=== PATIENT | male | born 1935 | race Caucasian/White ===

== ENCOUNTER 2024-06-15 09:57 | Outpatient (RCR) | payer MEDICARE, MEDICAID, SELFPAY ==
[2024-06-15 10:27] VITALS: BP 117/72; RESP 16; TEMP 35.8; BMI 19.5
--- NOTE | 2024-06-15 12:47 | PCM.WC.HP ---
History of Present Illness Date of Service: 06/15/24 Chief Complaint: Left foot wound History of Wound: History of left foot wound secondary to peripheral vascular disease Progress of Wound: Mr. Bo is a 88-year-old nondiabetic male presenting to wound care center today for evaluation of left foot wound. Patient was seen by an outside audit clerks supervisor who referred the patient to the wound care center for continued care. Patient has been treating his wound to the left foot with Betadine and offloading pads. The patient does have history of peripheral vascular disease with no intervention at this time. Patient is currently blind and uses a walking cane and motorized scooter for transportation. The patient is able to do exercises to the upper and lower extremities. The patient states the wound has broken down in shoe gear secondary to his inability to feel be from his peripheral vascular disease and shoe gear. Treatment thus far has been with an outside audit clerks supervisor and home treatment. He denies any trauma to the left foot. Denies constitutional symptoms. No other pedal complaints at this time. [facility] Home Medications ?Medication ?Instructions ?Recorded ?Last Taken ?Type aspirin 81 mg tablet,delayed 81 mg PO DAILY 06/15/24 Unknown History release (Adult Aspirin Regimen) lovastatin 40 mg tablet 40 mg PO DAILY 06/15/24 Unknown History metoprolol tartrate 50 mg tablet 50 mg PO DAILY 06/15/24 Unknown History (Lopressor) vitamins A,C,E-arju-bgshcs 4,296 1 cap PO DAILY 06/15/24 Unknown History [id number] mg-90 mg capsule (PreserVision AREDS) Allergy/AdvReac Type Severity Reaction Status Date / Time doxycycline Allergy Mild Rash Verified 06/15/24 10:24 Penicillins Allergy Unknown PT UNSURE Verified 06/15/24 10:24 OF REACTION Vital Signs Vital Signs Vital Signs: 06/15/24 10:27 Temperature 96.5 F L Temperature Source Temporal Respiratory Rate 16 Blood Pressure 117/72 Blood Pressure Mean 87 Blood Pressure Source Monitor Blood Pressure Position Sitting Blood Pressure Location Left Arm Oxygen Delivery Method Room Air Weight Weight: 59.874 kg Body Mass Index (BMI) 19.5 Physical Exam Narrative Vascular: None audible Doppler pulses to the DP of the left lower extremity. Monophasic dopplerable pulse to the PT of the left lower extremity. CFT is delayed. Skin temperature gradient is warm to cool from proximal leg to distal digits. No focal increases appreciated. Evidence of mild cyanosis appreciated to all digits to left lower extremity. Neurological:. Light touch intact. Patient response to painful stimuli. Dermatological: Full-thickness wound to the styloid process of the left foot measuring 0.1 x 0.1 x 0.1 cm. Excisional debridement down to and including dermal tissue with a number 3 mm dermal curette to the left foot full-thickness wound without incident. Predebridement measurement is callus. Postdebridement measurement is 0.1 x 0.1 x 0.1 cm. Musculoskeletal: No pain on palpation to the full-thickness wound to the left foot. No pain with calf pressure. Debridement Note Debridement Note Debridement Free Text: Excisional debridement down to and including dermal tissue with a number 3 mm dermal curette to the left foot full-thickness wound without incident. Predebridement measurement is callus. Postdebridement measurement is 0.1 x 0.1 x 0.1 cm. Post-Debridement Measurements and Additional Note: Post-Debridement Measurements/Treatment WC - Nurse 1 - General Ulcer Assessment Start: 06/15/24 10:27 Freq: Status: Active Protocol: DIANNE.LOWPHYLICIAT Activity Type Activity Date Activity User E-sign Co-sign Detail Recorded Client Recorded Date Recorded By Document 06/15/24 10:27 [id number] 06/15/24 10:34 06/15/24 10:27 - Today's Visit Information Type of service Initial Visit Arrival Mode Other Arrival Mode (Other) scooter Accompanied by daughter- Jazmyn Patient Identification Verified (Name & Yes ) Height and Weight Height 5 ft 9 in Weight 59.874 kg Weight in Pounds 132.0 lbs Weight Measurement Method Estimated by Patient Body Mass Index (BMI) 19.5 BMI Classification Normal BSA - Tosha 1.73 Vital Signs Temperature (97.8 F-99.1 F) 96.5 F L Temperature Source Temporal Respiratory Rate (12-18) 16 Respiratory rate source Observation Oxygen Delivery Method Room Air Blood Pressure (90/60-120/80) 117/72 Blood Pressure Mean 87 Source Monitor Position Sitting Blood Pressure Location Left Arm History Since Last Visit- (Skip if this is Patient's initial visit) Left Footwear Regular Shoe Right Footwear Regular Shoe Pain Scale: 0-10 Numeric Is Patient Pain Free? Yes WC - Nurse 1 - General Ulcer Measurement Start: 06/15/24 10:27 Freq: Status: Active Protocol: Activity Type Activity Date Activity User E-sign Co-sign Detail Recorded Client Recorded Date Recorded By Document 06/15/24 10:27 KW [id number] 06/15/24 10:34 KW 06/15/24 10:27 Wound Center Nurse 1 #1 LT LAT FOOT -Current Size (cm) - Length 0.1 -Current Size (cm) - Width 0.1 -Current Size (cm) - Depth 0.1 -Total Square Cm 0.01 -Date of Last Picture (Recall this 06/15/24 field) -Exudate Amt Small -Exudate Type Serosanguineous -Wound Margin Distinct, Outline Attached -Granulation Amt Large (67-100%) -Granulation Quality [place] -Necrosis Amt Small (1-33%) -Necrotic Tissue Type Adherent Slough -Texture (Kelsey-wound Skin Appearance) Assessed, Localized Edema -Moisture (Kelsey-wound Skin Appearance) Maceration -Color (Kelsey-wound Skin Appearance) Assessed -Temperature (Kelsey-wound Skin No Abnormality Appearance) (Pt Warm) -Tenderness on Palpation (Kelsey-wound No Skin Appearance) -Ulcer Cleansing Rinsed/ Irrigated with Saline -Foul Odor after Cleansing No -Anesthetic Used 5% Lidocaine Gel Left Calf (cm) 27 Left Ankle (cm) 17.5 WC - Nurse 2 - General Ulcer CM Notes Start: 06/15/24 10:27 Freq: Status: Active Protocol: Activity Type Activity Date Activity User E-sign Co-sign Detail Recorded Client Recorded Date Recorded By Document 06/15/24 10:43 [id number] 06/15/24 10:50 JF 06/15/24 10:43 Wound Center Nurse 2 #1 LT LAT FOOT -Time 10:49 -Correct Patient Yes -Correct Side, Site, Position Yes -Correct Procedure Yes -Procedure Performed Yes -Type of Procedure Debridement -Clinical Debridement Epidermis / Dermis -Tissue Removed Epidermis, Dermis -Post Debridement (cm) - Length 0.1 -Post Debridement (cm) - Width 0.1 -Post Debridement (cm) - Depth 0.1 -Total Square (Post) (cm) 0.01 -Area of Debridement (cm) - Length 0.1 -Area of Debridement (cm) - Width 0.1 -Total Square (Area) (cm) 0.01 -Tunneling No -Undermining/Tunneling No -Circular Undermining No -Wound/Ulcer Outcome Not Healed -Ulcer Cleansing Rinsed/ Irrigated with Saline -Foul Odor after Cleansing No -Bioengineered Tissue No -Bleeding Controlled with Pressure -Treatment Response Procedure Tolerated Well -Offloading No -Debridement - Open, 1st 20sq cm Yes Pain Scale: 0-10 Numeric Is Patient Pain Free? Yes Assessment/Plan Assessment/Plan (1) Non-pressure chronic ulcer of other part of left foot limited to breakdown of skin: CODE(S): L97.521 - Non-pressure chronic ulcer of other part of left foot limited to breakdown of skin PLAN: Patient was examined and evaluated. All findings were discussed with the patient. All questions were answered to the patient's satisfaction. Excisional debridement down to and including dermal tissue with a number 3 mm dermal curette to the left foot full-thickness wound without incident. Predebridement measurement is callus. Postdebridement measurement is 0.1 x 0.1 x 0.1 cm. Left lower extremities were cleaned patted dry. Betadine paint offloading pad was applied to the styloid process left foot. Patient can continue to ambulate as tolerated in regular shoe gear. We are requesting all medical records from [facility] since the patient has had noninvasive vascular studies done a few months ago. Once receiving the patient's documentation will make referral to vascular surgery for consultation and possible intervention if they feel it is needed. Patient will do dressing changes daily as above. Follow-up at the wound care center with Dr. Soria in 2 week. (2) Other specified peripheral vascular diseases: CODE(S): I73.89 - Other specified peripheral vascular diseases
--- NOTE | 2024-06-16 08:59 | WC ---
PHOTO 06/15/24 LEFT LATERAL FOOT
== END 2024-06-18 23:59 | disposition home or self-care (01) ==
LOC: WC 09:57
PROVIDERS: PCP Family Medicine; Referring Provider Family Medicine; Visit Provider Podiatrist Foot & Ankle Surgery
DX: I70.245 Atherosclerosis of native arteries of left leg with ulceration of other part of foot (principal); L97.521 Non-pressure chronic ulcer of other part of left foot limited to breakdown of skin; H54.7 Unspecified visual loss; Z79.82 Long term (current) use of aspirin; Z79.899 Other long term (current) drug therapy
CPT/HCPCS: 97597; 99204; G0463

== ENCOUNTER 2024-07-13 13:00 | Outpatient (RCR) | payer MEDICARE, MEDICAID, SELFPAY ==
[2024-06-19 00:56] VITALS: BP 117/72; RESP 16; TEMP 35.8; BMI 19.5
[2024-06-29 13:19] VITALS: BP 162/81; PULSE 61; RESP 16; TEMP 35.9; BMI 19.5
--- NOTE | 2024-06-29 16:07 | PN.PCM_ITS ---
History of Present Illness Date of Service: 06/29/24 Chief Complaint: Left foot wound History of Wound: History of left foot wound secondary to peripheral vascular disease Subjective Subjective Mr. Bo is a 88-year-old male presenting the wound care center today for follow-up evaluation of full-thickness wound to the lateral aspect of the left foot. Wound is healed. No sign of infection. No drainage. Denies trauma. Denies constitutional symptoms. No other pedal complaints at this time. Objective Data Objective Data Vital Signs: Vital Signs Temp Pulse Resp BP O2 Del Method 96.7 F L 61 16 162/81 H Room Air 06/29/24 13:19 06/29/24 13:19 06/29/24 13:19 06/29/24 13:19 06/29/24 13:19 Oxygen Delivery Method Room Air Weight: 59.874 kg Body Mass Index (BMI) 19.5 Physical Exam Narrative Vascular: None audible Doppler pulses to the DP of the left lower extremity. Monophasic dopplerable pulse to the PT of the left lower extremity. CFT is delayed. Skin temperature gradient is warm to cool from proximal leg to distal digits. No focal increases appreciated. Evidence of mild cyanosis appreciated to all digits to left lower extremity. Neurological:. Light touch intact. Patient response to painful stimuli. Dermatological: Full-thickness wound to the styloid process of the left foot Is healed. Musculoskeletal: No pain on palpation to the full-thickness wound to the left foot. No pain with calf pressure. Debridement Note Debridement Note Post-Debridement Measurements and Additional Note: Post-Debridement Measurements/Treatment - Nurse 1 - General Ulcer Assessment Start: 06/29/24 13:19 Freq: Status: Active Protocol: DIANNE.SHANEEXErvin Activity Type Activity Date Activity User E-sign Co-sign Detail Recorded Client Recorded Date Recorded By Document 06/29/24 13:19 [facility] [id number] 06/29/24 13:25 [facility] 06/29/24 13:19 - Today's Visit Information Type of service Follow-up Visit (Physician/LEGAL RECORDS CLERK ) Arrival Mode Wheelchair Transfer Assistance Other Transfer Assist (Other) 1 Accompanied by daughter Patient Identification Verified (Name & Yes ) Patient Requires Transmission-Based No Precautions Height and Weight Body Mass Index (BMI) 19.5 BMI Classification Normal Vital Signs Temperature (97.8 F-99.1 F) 96.7 F L Temperature Source Temporal Pulse Rate (60-100) 61 Pulse Location Monitor Respiratory Rate (12-18) 16 Respiratory rate source Observation Oxygen Delivery Method Room Air Blood Pressure (90/60-120/80) 162/81 H Blood Pressure Mean (mm Hg) 108 Source Monitor Position Sitting Blood Pressure Location Right Arm History Since Last Visit- (Skip if this is Patient's initial visit) Have you changed medications since your No last visit? Any new allergies or adverse reactions No Had a fall/change in ADL's that may No increase risk of falls Signs or symptoms of abuse and/or No neglect since last visit Have you been in the hospital since your No last visit? Experienced any changes in pain level or No management Left Footwear Regular Shoe Right Footwear Regular Shoe Pain Scale: 0-10 Numeric Is Patient Pain Free? Yes WC - Nurse 1 - General Ulcer Measurement Start: 06/29/24 13:19 Freq: Status: Active Protocol: Activity Type Activity Date Activity User E-sign Co-sign Detail Recorded Client Recorded Date Recorded By Document 06/29/24 13:19 [facility] [id number] 06/29/24 13:25 [facility] 06/29/24 13:19 Wound Center Nurse 1 #1 LT LAT FOOT -Combined with other wound No -Current Size (cm) - Length 0.1 -Current Size (cm) - Width 0.1 -Current Size (cm) - Depth 0.1 -Total Square Cm 0.01 -Date of Last Picture (Recall this 06/29/24 field) -Photo Taken Yes -Epithelialization Large 67-100% -Tunneling No -Undermining/Tunneling No -Circular Undermining No -Exudate Amt None Present -Texture (Kelsey-wound Skin Appearance) Assessed,Callus ,Scarring -Moisture (Kelsey-wound Skin Appearance) Assessed,Dry/ Scaly -Color (Kelsey-wound Skin Appearance) Assessed -Temperature (Kelsey-wound Skin No Abnormality Appearance) (Pt Warm) -Tenderness on Palpation (Kelsey-wound No Skin Appearance) -Ulcer Cleansing Rinsed/ Irrigated with Saline -Foul Odor after Cleansing No -Anesthetic Used 5% Lidocaine Gel WC - Nurse 2 - General Ulcer CM Notes Start: 06/29/24 13:19 Freq: Status: Active Protocol: Activity Type Activity Date Activity User E-sign Co-sign Detail Recorded Client Recorded Date Recorded By Document 06/29/24 13:36 [id number] 06/29/24 13:36 JF 06/29/24 13:36 Wound Center Nurse 2 -Correct Patient No -Correct Side, Site, Position No -Correct Procedure No -Procedure Performed No -Wound/Ulcer Outcome Not Healed -Debridement - Subq, 1st 20sq cm No Pain Scale: 0-10 Numeric Is Patient Pain Free? Yes - Nurse 3 - General Ulcer D/C NN Start: 06/29/24 13:19 Freq: Status: Active Protocol: Activity Type Activity Date Activity User E-sign Co-sign Detail Recorded Client Recorded Date Recorded By Document 06/29/24 13:46 KW [id number] 06/29/24 13:46 06/29/24 13:46 Wound Care Center Nurse 3 #1 LT LAT FOOT -Primary Dressing Covered/Secured with Dry Gauze Pain Scale: 0-10 Numeric Is Patient Pain Free? Yes WC - Visit Discharge Discharge Condition Stable Ambulatory Status Ambulatory, Wheelchair Transportation Private Auto Medication Reconcilliation completed & No provided to patient/care provider Clinical Summary of Care Provided Yes Assessment/Plan Assessment/Plan (1) Non-pressure chronic ulcer of other part of left foot limited to breakdown of skin: CODE(S): L97.521 - Non-pressure chronic ulcer of other part of left foot limited to breakdown of skin PLAN: Patient was examined and evaluated. All findings were discussed with the patient. All questions were answered to the patient's satisfaction. Patient's left foot wound is healed. Patient will continue to inspect his wound with his hands since he is blind. And as well as have his daughter check his wound to make sure there is no additional breakdown. We will resubmit for vascular studies from [facility] as they have not arrived yet. Patient is grateful for his care and will follow-up in 2 weeks. Follow-up at the wound care center with Dr. Soria in 2 week. (2) Other specified peripheral vascular diseases: CODE(S): I73.89 - Other specified peripheral vascular diseases
--- NOTE | 2024-06-30 08:53 | WC ---
PHOTO 06/29/24 LEFT LATERAL FOOT
[2024-07-13 13:15] VITALS: BP 173/86; PULSE 59; RESP 18; TEMP 35.5; BMI 19.5
--- NOTE | 2024-07-13 15:05 | PCM.WC.PN ---
History of Present Illness Date of Service: 07/13/24 Chief Complaint: Left foot wound History of Wound: History of left foot wound secondary to peripheral vascular disease Subjective Subjective Mr. Lee is a 89-year-old male presenting to wound care center today for follow-up evaluation of lateral foot wound. Patient has been doing dressing changes at home. He is concerned for a blister on the outside of his left foot. He admits to some drainage. Denies trauma. Denies constitutional symptoms. No other pedal complaints at this time. Objective Data Objective Data Vital Signs: Vital Signs Temp Pulse Resp BP O2 Del Method 96 F L 59 L 18 173/86 H Room Air 07/13/24 13:15 07/13/24 13:15 07/13/24 13:15 07/13/24 13:15 06/29/24 13:19 Oxygen Delivery Method Room Air Weight: 59.874 kg Body Mass Index (BMI) 19.5 Physical Exam Narrative Vascular: None audible Doppler pulses to the DP of the left lower extremity. Monophasic dopplerable pulse to the PT of the left lower extremity. CFT is delayed. Skin temperature gradient is warm to cool from proximal leg to distal digits. No focal increases appreciated. Evidence of mild cyanosis appreciated to all digits to left lower extremity. Neurological:. Light touch intact. Patient response to painful stimuli. Dermatological: Evidence of purulent drainage appreciated to the wound on the lateral aspect at the styloid process of the left foot. After D neha the wound the full-thickness wound measures 0.8 x 0.6 x 0.2 cm. Wound base is granular nature. Culture was taken. Excisional debridement down to and including subcutaneous tissue with a #15 blade and pickups to the styloid process of the left foot without incident. Predebridement measurement was callus. Postdebridement measurement is 0.8 x 0.6 x 0.2 cm. Musculoskeletal: Pain on palpation to the full-thickness wound to the left foot. No pain with calf pressure. Debridement Note Debridement Note Debridement Free Text: Excisional debridement down to and including subcutaneous tissue with a #15 blade and pickups to the styloid process of the left foot without incident. Predebridement measurement was callus. Postdebridement measurement is 0.8 x 0.6 x 0.2 cm. Post-Debridement Measurements and Additional Note: Post-Debridement Measurements/Treatment WC - Nurse 1 - General Ulcer Assessment Start: 06/29/24 13:19 Freq: Status: Active Protocol: ROSELYN Activity Type Activity Date Activity User E-sign Co-sign Detail Recorded Client Recorded Date Recorded By Document 06/29/24 13:19 [facility] [id number] 06/29/24 13:25 [facility] Document 07/13/24 13:15 RB [id number] 07/13/24 13:22 RB 06/29/24 07/13/24 13:19 13:15 - Today's Visit Information Type of service Follow-up Visit Follow-up Visit (Physician/RETAIL ROUTE SUPERVISOR (Physician/RETAIL ROUTE SUPERVISOR ) ) Arrival Mode Wheelchair Wheelchair Transfer Assistance Other None Transfer Assist (Other) 1 Accompanied by daughter Patient Identification Verified (Name & Yes Yes ) Patient Requires Transmission-Based No No Precautions Height and Weight Body Mass Index (BMI) 19.5 19.5 BMI Classification Normal Normal Vital Signs Temperature (97.8 F-99.1 F) 96.7 F L 96 F L Temperature Source Temporal Temporal Pulse Rate (60-100) 61 59 L Pulse Location Monitor Monitor Respiratory Rate (12-18) 16 18 Respiratory rate source Observation Observation Oxygen Delivery Method Room Air Blood Pressure (90/60-120/80) 162/81 H 173/86 H Blood Pressure Mean (mm Hg) 108 115 Source Monitor Monitor Position Sitting Semi-Fowlers Blood Pressure Location Right Arm Left Arm History Since Last Visit- (Skip if this is Patient's initial visit) Have you changed medications since your No No last visit? Any new allergies or adverse reactions No No Had a fall/change in ADL's that may No No increase risk of falls Signs or symptoms of abuse and/or No No neglect since last visit Have you been in the hospital since your No No last visit? Has dressing in place as prescribed Yes Has compression in place as prescribed Yes Has offloadiing in place as prescribed No Experienced any changes in pain level or No No management Left Footwear Regular Shoe Right Footwear Regular Shoe Pain Scale: 0-10 Numeric Is Patient Pain Free? Yes Yes - Nurse 1 - General Ulcer Measurement Start: 06/29/24 13:19 Freq: Status: Active Protocol: Activity Type Activity Date Activity User E-sign Co-sign Detail Recorded Client Recorded Date Recorded By Document 06/29/24 13:19 [facility] [id number] 06/29/24 13:25 [facility] Document 07/13/24 13:15 RB [id number] 07/13/24 13:22 RB 06/29/24 07/13/24 13:19 13:15 Wound Center Nurse 1 #1 LT LAT FOOT -Combined with other wound No No -Current Size (cm) - Length 0.1 0.1 -Current Size (cm) - Width 0.1 0.1 -Current Size (cm) - Depth 0.1 0.1 -Total Square Cm 0.01 0.01 -Date of Last Picture (Recall this 06/29/24 field) -Photo Taken Yes Yes -Epithelialization Large 67-100% -Tunneling No No -Undermining/Tunneling No No -Circular Undermining No No -Exudate Amt None Present Small -Exudate Type Purulent -Wound Margin Distinct, Outline Attached -Granulation Amt Medium (34-66%) -Granulation Quality [place] -Slough/Fibrin Yes -Necrosis Amt Medium (34-66%) -Necrotic Tissue Type Adherent Slough -Structure Exposed N/A -Texture (Kelsey-wound Skin Appearance) Assessed,Callus Assessed ,Scarring -Moisture (Kelsey-wound Skin Appearance) Assessed,Dry/ Assessed Scaly -Color (Kelsey-wound Skin Appearance) Assessed Assessed, Erythema -Temperature (Kelsey-wound Skin No Abnormality No Abnormality Appearance) (Pt Warm) (Pt Warm) -Tenderness on Palpation (Kelsey-wound No Yes Skin Appearance) -Ulcer Cleansing Rinsed/ Rinsed/ Irrigated with Irrigated with Saline Saline -Foul Odor after Cleansing No No -Anesthetic Used 5% Lidocaine 5% Lidocaine Gel Gel Lower Limb Edema Present Yes Left Calf (cm) 28.2 Left Ankle (cm) 18.5 WC - Nurse 2 - General Ulcer CM Notes Start: 06/29/24 13:19 Freq: Status: Active Protocol: Activity Type Activity Date Activity User E-sign Co-sign Detail Recorded Client Recorded Date Recorded By Document 06/29/24 13:36 [id number] 06/29/24 13:36 Document 07/13/24 13:33 [id number] 07/13/24 13:34 JF 06/29/24 07/13/24 13:36 13:33 Wound Center Nurse 2 #1 LT LAT FOOT -Time 13:33 -Correct Patient No Yes -Correct Side, Site, Position No Yes -Correct Procedure No Yes -Procedure Performed No Yes -Type of Procedure Debridement -Clinical Debridement Subcutaneous -Tissue Removed Subcutaneous -Post Debridement (cm) - Length 0.8 -Post Debridement (cm) - Width 0.6 -Post Debridement (cm) - Depth 0.2 -Total Square (Post) (cm) 0.48 -Area of Debridement (cm) - Length 0.8 -Area of Debridement (cm) - Width 0.6 -Total Square (Area) (cm) 0.48 -Tunneling No -Undermining/Tunneling No -Circular Undermining No -Wound/Ulcer Outcome Not Healed Not Healed -Ulcer Cleansing Rinsed/ Irrigated with Saline -Foul Odor after Cleansing No -Bioengineered Tissue No -Bleeding Controlled with Pressure -Treatment Response Procedure Tolerated Well -Offloading No -Debridement - Subq, 1st 20sq cm No Yes Pain Scale: 0-10 Numeric Is Patient Pain Free? Yes Yes - Nurse 3 - General Ulcer D/C NN Start: 06/29/24 13:19 Freq: Status: Active Protocol: Activity Type Activity Date Activity User E-sign Co-sign Detail Recorded Client Recorded Date Recorded By Document 06/29/24 13:46 [id number] 06/29/24 13:46 06/29/24 13:46 Wound Care Center Nurse 3 #1 LT LAT FOOT -Primary Dressing Covered/Secured with Dry Gauze Pain Scale: 0-10 Numeric Is Patient Pain Free? Yes - Visit Discharge Discharge Condition Stable Ambulatory Status Ambulatory, Wheelchair Transportation Private Auto Medication Reconcilliation completed & No provided to patient/care provider Clinical Summary of Care Provided Yes Assessment/Plan Assessment/Plan (1) Non-pressure chronic ulcer of other part of left foot with fat layer exposed: CODE(S): L97.522 - Non-pressure chronic ulcer of other part of left foot with fat layer exposed PLAN: Patient was examined and evaluated. All findings were discussed with the patient. All questions were answered to the patient's satisfaction. Excisional debridement down to and including subcutaneous tissue with a #15 blade and pickups to the styloid process of the left foot without incident. Predebridement measurement was callus. Postdebridement measurement is 0.8 x 0.6 x 0.2 cm. The left foot was wiped clean and patted dry. The ulceration was dressed with Betadine paint and a Band-Aid. Patient will perform daily dressing changes. Culture was taken of the full-thickness wound secondary to purulent drainage. Antibiotics will be dispensed when culture and sensitivity returns. Reviewed the patient's arterial studies show evidence of decreased blood flow to the left lower extremity as compared to the right. Will send referral over to Dr. Armas for consultation and evaluation. Follow-up at the wound care center with Dr. Soria in 1 week. (2) Other specified peripheral vascular diseases: CODE(S): I73.89 - Other specified peripheral vascular diseases
--- NOTE | 2024-07-15 09:08 | WC ---
PHOTO 07/13/24 LEFT LATERAL FOOT
== END 2024-07-18 23:59 | disposition home or self-care (01) ==
LOC: WC 13:00
PROVIDERS: PCP Family Medicine; Referring Provider Family Medicine; Visit Provider Podiatrist Foot & Ankle Surgery
DX: S90.822A Blister (nonthermal), left foot, initial encounter (principal); X58.XXXA Exposure to other specified factors, initial encounter; I73.9 Peripheral vascular disease, unspecified; Z79.82 Long term (current) use of aspirin; Z79.899 Other long term (current) drug therapy
CPT/HCPCS: 11042; 87070; 87075; 87077; 87186; 87205; 99213; G0463

== ENCOUNTER 2024-07-20 07:21 | Outpatient (RCR) | payer MEDICARE, MEDICAID, SELFPAY ==
[2024-07-19 00:23] VITALS: BP 117/72; PULSE 59; RESP 16; TEMP 35.8; BMI 19.5
[2024-07-20 08:12] VITALS: BP 186/92; PULSE 74; RESP 16; TEMP 36.1; BMI 19.5
--- NOTE | 2024-07-20 08:46 | PCM.WC.PN ---
History of Present Illness Date of Service: 07/20/24 Chief Complaint: Left foot wound History of Wound: History of left foot wound secondary to peripheral vascular disease Progress of Wound: Left foot wound Subjective Subjective Mr. Bo is a 89-year-old male presenting to wound care center today to follow-up evaluation of full-thickness wound to the lateral aspect of the left foot. Patient has been doing dressing changes consisting of Betadine paint and Band-Aid. He admits to improvement to the wound. He admits to mild pain. He is anticipating his culture results during today's visit. Uses his walking cane and motorized scooter for transportation. Denies trauma. Denies constitutional symptoms. No other pedal complaints at this time. Objective Data Objective Data Vital Signs: Vital Signs Temp Pulse Resp BP 97.0 F L 74 16 186/92 H 07/20/24 08:12 07/20/24 08:12 07/20/24 08:12 07/20/24 08:12 Weight: 59.874 kg Body Mass Index (BMI) 19.5 Physical Exam Narrative Vascular: None audible Doppler pulses to the DP of the left lower extremity. Monophasic dopplerable pulse to the PT of the left lower extremity. CFT is delayed. Skin temperature gradient is warm to cool from proximal leg to distal digits. No focal increases appreciated. Evidence of mild cyanosis appreciated to all digits to left lower extremity. Neurological:. Light touch intact. Patient response to painful stimuli. Dermatological: Evidence of purulent drainage appreciated to the wound on the lateral aspect at the styloid process of the left foot. Full-thickness wound measures 0.3 x 0.3 x 0.1 cm. Wound base is granular nature. Excisional debridement down to and including subcutaneous tissue with a #15 blade and pickups to the styloid process of the left foot without incident. Predebridement measurement was callus. Postdebridement measurement is 0.3 x 0.3 x 0.1 cm. Musculoskeletal: Pain on palpation to the full-thickness wound to the left foot. No pain with calf pressure. Debridement Note Debridement Note Debridement Free Text: Excisional debridement down to and including subcutaneous tissue with a #15 blade and pickups to the styloid process of the left foot without incident. Predebridement measurement was callus. Postdebridement measurement is 0.3 x 0.3 x 0.1 cm. Post-Debridement Measurements and Additional Note: Post-Debridement Measurements/Treatment DIANNE - Nurse 1 - General Ulcer Assessment Start: 07/20/24 08:12 Freq: Status: Active Protocol: ROSELYN Activity Type Activity Date Activity User E-sign Co-sign Detail Recorded Client Recorded Date Recorded By Document 07/20/24 08:12 BLAISE [id number] 07/20/24 08:20 BLAISE Edit Result 07/20/24 08:12 BLAISE (1) [id number] 07/20/24 08:24 BLAISE (1) Blood Pressure (90/60-120/80) 191/106 H => 186/92 H Blood Pressure Mean (mm Hg) 134 => 123 Source Monitor => Manual Blood Pressure Location Left Arm => Right Arm 07/20/24 08:12 WC - Today's Visit Information Type of service Follow-up Visit (Physician/[employer] ) Arrival Mode Wheelchair Transfer Assistance Manual Patient Identification Verified (Name & Yes ) Patient Requires Transmission-Based No Precautions Height and Weight Body Mass Index (BMI) 19.5 BMI Classification Normal Vital Signs Temperature (97.8 F-99.1 F) 97.0 F L Temperature Source Temporal Pulse Rate (60-100) 74 Pulse Location Monitor Respiratory Rate (12-18) 16 Respiratory rate source Observation Blood Pressure (90/60-120/80) 186/92 H Blood Pressure Mean (mm Hg) 123 Source Manual Position Semi-Fowlers Blood Pressure Location Right Arm History Since Last Visit- (Skip if this is Patient's initial visit) Have you changed medications since your No last visit? Any new allergies or adverse reactions No Had a fall/change in ADL's that may No increase risk of falls Signs or symptoms of abuse and/or No neglect since last visit Have you been in the hospital since your No last visit? Has dressing in place as prescribed Yes Has compression in place as prescribed N/A Has offloadiing in place as prescribed N/A Experienced any changes in pain level or No management Left Footwear Regular Shoe Right Footwear Regular Shoe Pain Scale: 0-10 Numeric Is Patient Pain Free? Yes DIANNE - Nurse 1 - General Ulcer Measurement Start: 07/20/24 08:12 Freq: Status: Active Protocol: Activity Type Activity Date Activity User E-sign Co-sign Detail Recorded Client Recorded Date Recorded By Document 07/20/24 08:12 BLAISE [id number] 07/20/24 08:20 JF 07/20/24 08:12 Wound Center Nurse 1 #1 LT LAT FOOT -Combined with other wound No -Current Size (cm) - Length 0.2 -Current Size (cm) - Width 0.2 -Current Size (cm) - Depth 0.2 -Total Square Cm 0.04 -Photo Taken No -Epithelialization Small 1-33% -Tunneling No -Undermining/Tunneling No -Circular Undermining No -Exudate Amt Small -Exudate Type Serosanguineous -Wound Margin Flat & Intact -Granulation Amt Medium (34-66%) -Granulation Quality [place] -Slough/Fibrin Yes -Necrosis Amt Small (1-33%) -Necrotic Tissue Type Adherent Slough -Structure Exposed N/A -Texture (Kelsey-wound Skin Appearance) Assessed -Moisture (Kelsey-wound Skin Appearance) Assessed,Dry/ Scaly -Color (Kelsey-wound Skin Appearance) Assessed -Temperature (Kelsey-wound Skin No Abnormality Appearance) (Pt Warm) -Tenderness on Palpation (Kelsey-wound No Skin Appearance) -Ulcer Cleansing Rinsed/ Irrigated with Saline -Foul Odor after Cleansing No -Anesthetic Used 5% Lidocaine Gel Lower Limb Edema Present No WC - Nurse 2 - General Ulcer CM Notes Start: 07/20/24 08:12 Freq: Status: Active Protocol: Activity Type Activity Date Activity User E-sign Co-sign Detail Recorded Client Recorded Date Recorded By Document 07/20/24 08:43 JF [id number] 07/20/24 08:44 07/20/24 08:43 Wound Center Nurse 2 #1 LT LAT FOOT -Time 08:44 -Correct Patient Yes -Correct Side, Site, Position Yes -Correct Procedure Yes -Procedure Performed Yes -Type of Procedure Debridement -Clinical Debridement Subcutaneous -Tissue Removed Epidermis -Post Debridement (cm) - Length 0.3 -Post Debridement (cm) - Width 0.3 -Post Debridement (cm) - Depth 0.1 -Total Square (Post) (cm) 0.09 -Area of Debridement (cm) - Length 0.3 -Area of Debridement (cm) - Width 0.3 -Total Square (Area) (cm) 0.09 -Tunneling No -Undermining/Tunneling No -Circular Undermining No -Wound/Ulcer Outcome Not Healed -Ulcer Cleansing Rinsed/ Irrigated with Saline -Foul Odor after Cleansing No -Bioengineered Tissue No -Bleeding Controlled with Pressure -Treatment Response Procedure Tolerated Well -Offloading No -Debridement - Subq, 1st 20sq cm Yes Pain Scale: 0-10 Numeric Is Patient Pain Free? Yes Assessment/Plan Assessment/Plan (1) Non-pressure chronic ulcer of other part of left foot with fat layer exposed: CODE(S): L97.522 - Non-pressure chronic ulcer of other part of left foot with fat layer exposed PLAN: Patient was examined and evaluated. All findings were discussed with the patient. All questions were answered to the patient's satisfaction. Excisional debridement down to and including subcutaneous tissue with a #15 blade and pickups to the styloid process of the left foot without incident. Predebridement measurement was callus. Postdebridement measurement is 0.3 x 0.3 x 0.1 cm. Left foot was wiped clean and patted dry. Wound was dressed with Betadine paint and sterile Band-Aid. Patient will continue daily dressing changes for the next 2 weeks. Cultures show evidence of Staph aureus growth patient will be placed on doxycycline 100 mg twice daily for 2 weeks. Follow-up at the wound care center with Dr. Soria in 2 week.
== END 2024-08-18 23:59 | disposition home or self-care (01) ==
LOC: WC 07:21
PROVIDERS: PCP Family Medicine; Referring Provider Family Medicine; Visit Provider Podiatrist Foot & Ankle Surgery
DX: L97.522 Non-pressure chronic ulcer of other part of left foot with fat layer exposed (principal); Z79.82 Long term (current) use of aspirin; Z79.899 Other long term (current) drug therapy
CPT/HCPCS: 11042